=== PATIENT | female | born 1945 | race Caucasian/White ===

== ENCOUNTER 2024-12-18 18:14 | Emergency (ER) | payer SELFPAY ==
[2024-12-18 18:23] VITALS: BP 189/111; PULSE 83; RESP 18; TEMP 37.1; O2SAT 93; BMI 25.7
[2024-12-18 19:00] VITALS: BP 152/73; PULSE 67; O2SAT 96
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
[2024-12-18 20:06] VITALS: BP 128/72; PULSE 70; RESP 16; TEMP 36.6; O2SAT 98
[2024-12-18 20:07] VITALS: BP 160/80; PULSE 60; O2SAT 96
== END 2024-12-18 20:10 | disposition home or self-care (01) ==
PROVIDERS: Emergency Provider Student in an Organized Health Care Education/Training Program
DX: S60.212A Contusion of left wrist, initial encounter (principal); S46.012A Strain of muscle(s) and tendon(s) of the rotator cuff of left shoulder, initial encounter; V49.40XA Driver injured in collision with unspecified motor vehicles in traffic accident, initial encounter
CPT/HCPCS: 73030; 73090; 73110; 99284